=== PATIENT | female | born 1980 | race Hispanic/Latino ===

== ENCOUNTER 2018-09-16 09:30 | Emergency (ER) | payer BC ==
[~2018-09-16] VITALS: Ht 157.5 cm; Wt 87.5 kg
--- OUTSIDE RECORDS SUMMARY | 2018-09-16 09:33 | XMS REPORT | Clinical Summary ---
Author Author [facility] Address Unknown Phone Unavailable Care Team Providers Care Property Inspector Name Role Phone Liliam Bangura MD PCP Allergies Comments Active Allergy Reactions Severity Noted Date Labetalol Rash, Low 02/05/2016 Swelling Penicillins 02/05/2016 Medications End Date Status Medication Sig Dispensed Refills Start Date Active fluticasone (FLONASE) 50 1 spray (50 16 g 1 mcg/actuation nasal mcg total) by 7 sprayIndications: Each Nare Allergic rhinitis, route daily. unspecified allergic rhinitis trigger, unspecified rhinitis seasonality Active diltiazem CD (CardIZEM Take 1 90 capsule 0 CD) 240 MG 24 hr capsule (240 8 capsuleIndications: mg total) by Essential hypertension mouth daily. Active hydroCHLOROthiazide Take 1 tablet 90 tablet 0 (HYDRODIURIL) 25 MG (25 mg total) 8 tabletIndications: by mouth Essential hypertension daily. Active levothyroxine (SYNTHROID, Take 137 mcg 90 tablet 0 LEVOXYL) 137 mcg by mouth 8 tabletIndications: daily. Hypothyroidism, unspecified type 03/04/2019 Active sertraline (ZOLOFT) 100 Take 1 tablet 90 tablet 0 MG tabletIndications: (100 mg 8 Anxiety total) by mouth daily. 03/01/2018 Discontinued hydroCHLOROthiazide Take 1 tablet 90 tablet 1 (HYDRODIURIL) 25 MG (25 mg total) 7 tabletIndications: by mouth once Essential hypertension daily. 02/27/2018 Discontinued levothyroxine (SYNTHROID, Take 137 mcg 90 tablet 1 LEVOXYL) 137 mcg by mouth once 7 tabletIndications: daily. Hypothyroidism, unspecified type 03/04/2018 Discontinued sertraline (ZOLOFT) 50 MG Take 1 tablet 90 tablet 1 tabletIndications: (50 mg total) 7 Anxiety by mouth once daily. 03/01/2018 Discontinued diltiazem CD (CardIZEM Take 1 90 capsule 1 CD) 240 MG 24 hr capsule (240 7 capsuleIndications: mg total) by Essential hypertension mouth once daily. 10/23/2017 ALPRAZolam (XANAX) 0.25 Take 1 tablet 30 tablet 0 MG tablet (0.25 mg 7 total) by mouth daily as needed for anxiety for up to 30 days. 03/04/2018 Discontinued levothyroxine (SYNTHROID, Take 137 mcg 3 tablet 0 LEVOXYL) 137 mcg by mouth 8 tabletIndications: daily. Hypothyroidism, unspecified type 03/02/2018 ALPRAZolam (XANAX) 0.25 Take 1 tablet 3 tablet 0 MG tablet (0.25 mg 8 total) by mouth nightly as needed for anxiety for up to 3 days. 03/04/2018 Discontinued diltiazem CD (CardIZEM TAKE 1 2 capsule 0 CD) 240 MG 24 hr CAPSULE BY 8 capsuleIndications: MOUTH ONCE Essential hypertension DAILY 03/04/2018 Discontinued hydroCHLOROthiazide TAKE 1 TABLET 2 tablet 0 (HYDRODIURIL) 25 MG BY MOUTH ONCE 8 tabletIndications: DAILY Essential hypertension 04/03/2018 ALPRAZolam (XANAX) 0.25 Take 1 tablet 30 tablet 0 MG tabletIndications: (0.25 mg 8 Anxiety total) by mouth daily as needed for anxiety for up to 30 days. Active Problems Problem Noted Date Anxiety 04/26/2016 Essential hypertension 04/26/2016 Hypothyroidism 02/05/2016 Mixed hyperlipidemia 02/05/2016 Disorder 02/05/2016 Overview: Disorder of head Encounters Care Team Description Date Type Specialty Liliam Bangura MD Anxiety; Essential hypertension; Hypothyroidism, unspecified type 07/01/2018 Refill Family Medicine Liliam Bangura MD Essential hypertension (Primary Dx); Hypothyroidism, unspecified type; Anxiety; Mixed hyperlipidemia 03/04/2018 Office Visit Family Medicine Liliam Bangura MD Essential hypertension 03/04/2018 Refill [facility] Medicine Liliam Bangura MD Essential hypertension 03/01/2018 Refill [facility] Medicine Liliam Bangura MD Hypothyroidism, unspecified type 02/27/2018 Orders Only Family Liliam Shirley MD 02/27/2018 Telephone [facility] Liliam Bangura MD Anxiety; Hypothyroidism, unspecified type 01/21/2018 Refill [facility] Liliam Shirley MD 09/23/2017 Orders Only [facility] Liliam Shirley MD 09/23/2017 Telephone Family Medicine after 09/15/2017 Immunizations Name Dates Previously Given Next Due Influenza, Unspecified 07/18/2014 Social History Date Tobacco Use Types Packs/Day Years Used Never Smoker Smokeless Tobacco: Never Used Alcohol Use Drinks/Week oz/Week Comments Yes Sex Assigned at Date Recorded Not on file Industry Job Start Date Occupation Not on file Not on file Not on file Travel End Travel History Travel Start No recent travel history available. Last Filed Vital Signs Time Taken Vital Sign Reading 03/04/2018 3:44 PM CDT Blood Pressure 140/100 03/04/2018 3:22 PM CDT Pulse 91 03/04/2018 3:22 PM CDT Temperature 37.1 C (98.7 F) - Respiratory Rate - 03/04/2018 3:22 PM CDT Oxygen Saturation 98% - Inhaled Oxygen - Concentration 03/04/2018 3:22 PM CDT Weight 89.8 kg (198 lb) 03/04/2018 3:22 PM CDT Height 157.5 cm (5' 2") 03/04/2018 3:22 PM CDT Body Mass Index 36.21 Plan of Treatment Health Maintenance Due Date Last Done Comments CERVICAL CANCER SCREENING 2001 INFLUENZA VACCINE 06/03/2018 08/03/2015, 07/18/2014, 07/18/2014 Results Not on fileafter 09/15/2017 Insurance Payer Benefit Subscriber ID Type Phone Address Plan / Group BCBS BCBS xxxxxxxxxxxx PPO CHOICE PPO/LUCILLE ZIEGLER PPO Advance Directives Patient has advance care planning documents on file. For more information, dinora lozano contact: Favio Conklin[address] [place] [address]
[2018-09-16] MEDS ORDERED: ONDANSETRON HCL 4 MG ORAL DISINTEGRATING TAB PO ONE (10:00)
[2018-09-16] MEDS ORDERED: SYNTHROID75 MCG PO (10:02)
[2018-09-16] MEDS ORDERED: CLARITIN5 MG (10:03)
[2018-09-16] MEDS ORDERED: XANAX0.5 MG (10:04)
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
[2018-09-16 11:32] VITALS: BP 155/70
== END 2018-09-16 11:33 | disposition home or self-care (01) ==
LOC: FSED 09:30
DX: S06.0X9A Concussion with loss of consciousness of unspecified duration, initial encounter (principal); W22.8XXA Striking against or struck by other objects, initial encounter; Y92.008 Other place in unspecified non-institutional (private) residence as the place of occurrence of the external cause; R41.3 Other amnesia; I10 Essential (primary) hypertension; E03.9 Hypothyroidism, unspecified
CPT/HCPCS: 70450; 99283; Q0162

== ENCOUNTER 2018-10-23 21:06 | Emergency (ER) | payer BC ==
[~2018-10-23] VITALS: Ht 157.5 cm; Wt 83.0 kg
[~2018-10-23 21:06] MED LIST: CLARITIN5 MG; SYNTHROID75 MCG PO; XANAX0.5 MG
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
--- OUTSIDE RECORDS SUMMARY | 2018-10-23 21:09 | XMS REPORT | Clinical Summary ---
Author Author [facility] Address Unknown Phone Unavailable Care Team Providers Care Acute Care Physician Name Role Phone Liliam Bangura MD PCP Allergies Comments Active Allergy Reactions Severity Noted Date Labetalol Rash, Low 02/05/2016 Swelling Penicillins 02/05/2016 Medications End Date Status Medication Sig Dispensed Refills Start Date Active fluticasone (FLONASE) 50 1 spray (50 16 g 1 mcg/actuation nasal mcg total) by 7 sprayIndications: Each Nare Allergic rhinitis, route daily. unspecified allergic rhinitis trigger, unspecified rhinitis seasonality 10/30/2018 Active ALPRAZolam (XANAX) 0.25 Take 1 tablet 30 tablet 1 MG tablet (0.25 mg 8 total) by mouth nightly as needed for anxiety for up to 30 days. Active diltiazem CD (CardIZEM Take 1 90 capsule 1 CD) 240 MG 24 hr capsule (240 8 capsuleIndications: mg total) by Essential hypertension mouth daily. Active hydroCHLOROthiazide Take 1 tablet 90 tablet 1 (HYDRODIURIL) 25 MG (25 mg total) 8 tabletIndications: by mouth Essential hypertension daily. Active levothyroxine (SYNTHROID, Take 137 mcg 90 tablet 1 LEVOXYL) 137 mcg by mouth 8 tabletIndications: daily. Hypothyroidism, unspecified type 09/30/2019 Active sertraline (ZOLOFT) 100 Take 1 tablet 90 tablet 1 MG tabletIndications: (100 mg 8 Anxiety total) [...] MOUTH ONCE 8 tabletIndications: DAILY Essential hypertension 09/30/2018 Discontinued diltiazem CD (CardIZEM Take 1 90 capsule 0 CD) 240 MG 24 hr capsule (240 8 capsuleIndications: mg total) by Essential hypertension mouth daily. 09/30/2018 Discontinued hydroCHLOROthiazide Take 1 tablet 90 tablet 0 (HYDRODIURIL) 25 MG (25 mg total) 8 tabletIndications: by mouth Essential hypertension daily. 09/22/2018 Discontinued levothyroxine (SYNTHROID, Take 137 mcg 90 tablet 0 LEVOXYL) 137 mcg by mouth 8 tabletIndications: daily. Hypothyroidism, unspecified type 04/03/2018 ALPRAZolam (XANAX) 0.25 Take 1 tablet 30 tablet 0 03/04/201 MG tabletIndications: (0.25 mg 8 Anxiety total) by mouth daily as needed for anxiety for up to 30 days. 09/30/2018 Discontinued sertraline (ZOLOFT) 100 Take 1 tablet 90 tablet 0 03/04/201 MG tabletIndications: (100 mg 8 Anxiety total) by mouth daily. 09/30/2018 Discontinued ALPRAZolam (XANAX) 0.25 Take 1 tablet 10 tablet 0 MG tablet (0.25 mg 8 total) by mouth nightly as needed for anxiety for up to 10 days. 09/30/2018 Discontinued levothyroxine (SYNTHROID, Take 137 mcg 10 tablet 0 LEVOXYL) 137 mcg by mouth 8 tabletIndications: daily. Hypothyroidism, unspecified type Active Problems Problem Noted Date Anxiety 04/26/2016 Essential hypertension 04/26/2016 Hypothyroidism 02/05/2016 Mixed hyperlipidemia 02/05/2016 Disorder 02/05/2016 Overview: Disorder of head Encounters Care Team Description Date Type Specialty Liliam Bangura MD Essential hypertension (Primary Dx); Hypothyroidism, unspecified type; Anxiety; Hyperlipidemia, unspecified hyperlipidemia type 09/30/2018 Office Visit Liliam Horan MD Hypothyroidism, unspecified type 09/22/2018 Orders Only Liliam Horan MD 09/22/2018 Telephone Liliam Horan MD Anxiety; Essential hypertension; Hypothyroidism, unspecified type 07/01/2018 Refill Liliam Horan MD Essential hypertension (Primary Dx); Hypothyroidism, unspecified type; Anxiety; Mixed hyperlipidemia 03/04/2018 Office Visit Liliam Horan MD Essential hypertension 03/04/2018 Refill Liliam Horan MD Essential hypertension 03/01/2018 Refill Liliam Horan MD Hypothyroidism, unspecified type 02/27/2018 Orders Only Liliam Horan MD 02/27/2018 Telephone Liliam Horan MD Anxiety; Hypothyroidism, unspecified type 01/21/2018 Refill Family Medicine after 10/22/2017 Immunizations Name Dates Previously Given Next Due [...] Vital Signs Time Taken Vital Sign Reading 09/30/2018 10:53 AM MECHANICAL SYSTEM TECHNICIAN Blood Pressure 150/100 09/30/2018 10:34 AM MECHANICAL SYSTEM TECHNICIAN Pulse 91 09/30/2018 10:34 AM MECHANICAL SYSTEM TECHNICIAN Temperature 36.7 C (98.1 F) - Respiratory Rate - 09/30/2018 10:34 AM MECHANICAL SYSTEM TECHNICIAN Oxygen Saturation 98% - Inhaled Oxygen - Concentration 09/30/2018 10:34 AM MECHANICAL SYSTEM TECHNICIAN Weight 86.2 kg (190 lb) 09/30/2018 10:34 AM MECHANICAL SYSTEM TECHNICIAN Height 157.5 cm (5' 2") 09/30/2018 10:34 AM MECHANICAL SYSTEM TECHNICIAN Body Mass Index 34.75 Plan of Treatment Health Maintenance Due Date Last Done Comments CERVICAL CANCER SCREENING 2001 INFLUENZA VACCINE 06/03/2018 07/18/2014 Results Not on fileafter 10/22/2017 Insurance Payer Benefit Subscriber ID Type Phone Address Plan / Group BCBS BCBS xxxxxxxxxxxx PPO CHOICE PPO/LUCILLE ZIEGLER PPO Advance Directives Patient has advance care planning documents on file. For more information, dinora lozano contact: Favio Guo [address] [place] [address]
[2018-10-24 00:50] VITALS: BP 154/82
== END 2018-10-23 22:23 | disposition home or self-care (01) ==
LOC: FSED 21:06
DX: R10.30 Lower abdominal pain, unspecified (principal); N30.91 Cystitis, unspecified with hematuria; I10 Essential (primary) hypertension; E03.9 Hypothyroidism, unspecified; F32.9 Major depressive disorder, single episode, unspecified
CPT/HCPCS: 81003; 81025; 87086; 99282